=== PATIENT | male | born 1970 | race Caucasian/White ===

== ENCOUNTER → 2016-10-05 | Outpatient (CLI) | payer OTHER ==
[~2016-10-05] MED LIST: ASPI325T60 PO; ATOR-24 PO; CLOP1TAB5 PO; LISI-729 PO; LPR25 PO
[2016-10-05 13:08] LABS: CHOLESTEROL/HDL RATIO 3.4
== END | disposition home or self-care (01) ==
LOC: C.LABBFT 08:21
PROVIDERS: ATTEND Internal Medicine Cardiovascular Disease
DX: E78.5 Hyperlipidemia, unspecified (principal)

== ENCOUNTER → 2017-04-20 | Outpatient (CLI) | payer OTHER ==
[2017-04-20 13:20] LABS: CHOLESTEROL/HDL RATIO 3.5
== END | disposition home or self-care (01) ==
LOC: C.LABBFT 07:32
PROVIDERS: ATTEND Internal Medicine Cardiovascular Disease
DX: E78.5 Hyperlipidemia, unspecified (principal)

== ENCOUNTER → 2017-10-01 | Outpatient (CLI) | payer OTHER ==
[2017-10-01 12:20] LABS: BASO % 0.6 %; BASO ABS # 0.04 K/uL (0-0.2); EOS % 8.2 %; EOS ABS # 0.55 K/uL (0-0.5); HEMATOCRIT 42.4 % (42-52); HEMOGLOBIN 14.5 g/dL (14.0-18.0); IG# 0.04 K/uL (0.00-0.02); LYMPH % 25.5 %; LYMPH ABS # 1.71 K/uL (1.2-3.4); MEAN CELL VOLUME 88.5 fL (80-100); MEAN CORPUSCULAR HEMOGLOBIN 30.3 pg (25-34); MEAN CORPUSCULAR HGB CONC 34.2 g/dl (32-36); MEAN PLATELET VOLUME 10.3 fL (7.4-10.4); MONO % 8.5 %; MONO ABS # 0.57 K/uL (0.11-0.59); NEUT % 56.6 %; NEUT ABS # 3.79 K/uL (1.4-6.5); PLATELET COUNT 203 K/uL (130-400); RED CELL DISTRIBUTION WIDTH CV 12.9 % (11.5-14.5); RED CELL DISTRIBUTION WIDTH SD 41.2 fL (36.4-46.3)
[2017-10-01 12:38] LABS: ALBUMIN 4.1 gm/dl (3.4-5.0); ALKALINE PHOSPHATASE 53 U/L (45-117); ALT/SGPT 73 U/L (12-78); AST/SGOT 24 U/L (15-37); BLOOD UREA NITROGEN 21 mg/dl (7-18); CARBON DIOXIDE 28 mmol/L (21-32); CHOLESTEROL 149 mg/dl (0-200); CREATININE 1.17 mg/dl (0.60-1.40); GLUCOSE 110 mg/dl (70-99); POTASSIUM 4.4 mmol/L (3.5-5.1); SODIUM 140 mmol/L (136-145)
[2017-10-01 12:48] LABS: LDL CHOLESTEROL CALCULATED 65 mg/dl; TOTAL PROTEIN 7.4 gm/dl (6.4-8.2)
== END | disposition home or self-care (01) ==
LOC: C.LABBFT 08:04
PROVIDERS: ATTEND Internal Medicine
DX: I10 Essential (primary) hypertension (principal); E78.5 Hyperlipidemia, unspecified; R06.02 Shortness of breath; R39.9 Unspecified symptoms and signs involving the genitourinary system

== ENCOUNTER → 2017-10-12 | Outpatient (CLI) | payer OTHER ==
[2017-10-12 12:46] LABS: HEMOGLOBIN A1C 5.4 % (4.5-5.6)
== END | disposition home or self-care (01) ==
LOC: C.LABBFT 08:12
PROVIDERS: ATTEND Internal Medicine
DX: I25.10 Atherosclerotic heart disease of native coronary artery without angina pectoris (principal)

== ENCOUNTER → 2017-10-13 | Outpatient (CLI) | payer OTHER ==
--- NOTE | 2017-10-13 13:31 | EXERCISE STRESS ECHO ---
*NOTICE TO RECEIVING CONSTITUTION PARTY AGENCY This information is strictly Confidential and protected under [place] law. [place] law prohibits you from making any further disclosure of this information unless further disclosure is expressly permitted by the written consent of the person to whom it pertains or is authorized by law. A general authorization for the release of medical or other information is not sufficient for this purpose. Hospital accepts no responsibility if the information is made available to any other person, INCLUDING THE PATIENT. Interpretation Summary * Name: JOHN HENDRIX Study Date: 10/13/2017 09:41 AM BP: 138/93 mmHg * Patient Location: [facility] HR: 74 * : 1970 (M/d/yyyy) Gender: Male Height: 72 in * Age: 46 yrs Ethnicity: CA Weight: 230 lb * Ordering Physician: Franco Joyce * Referring Physician: Franco Joyce * Performed By: Cecile Ku RCS * * Reason For Study: SOB ON EXERTION * BSA: 2.3 m2 * -- Conclusions -- * 1. Normal stress echocardiogram at 11.5 METS and a peak heart rate of 100% predicted maximum. * 2. No exercise-induced chest pain. * 3. No EKG changes. * 4. Baseline echocardiogram notes normal left ventricular systolic function and no significant valvular pathology. Procedure Details * ECHOEX, CPT #[id number] * ECHO COLOR FLOW, CPT #[id number] * ECHO DOPPLER, CPT #[id number] Left Ventricle * The left ventricle is normal in size. * There is normal left ventricular wall thickness. * Left ventricular systolic function is normal. * Resting wall motion: Normal. Stress wall motion: Appropriate increase in Left ventricular systolic function and decrease in cavity size. No stress induced segmental wall motion abnormalities. Right Ventricle * The right ventricle is normal in size and function. Atria * The left atrium is mildly dilated. * Right atrial size is normal. * No ASD detected; PFO is not assessed. Mitral Valve * The mitral valve anatomy is normal. * There is no mitral valve stenosis. * Significant mitral regurgitation is absent. Tricuspid Valve * The tricuspid valve anatomy is normal. * There is no tricuspid stenosis. * There is trace tricuspid regurgitation. Aortic Valve * The aortic valve is normal in structure and function. * Aortic stenosis is absent. * No aortic regurgitation is present. Pulmonic Valve * The pulmonary valve is not well seen, but the Doppler examination is normal without significant regurgitation or stenosis. Great Vessels * The aortic root is normal size. * The pulmonary is not well visualized. Pericardium * There is no pericardial effusion. Stress Parameters * Normal baseline electrocardiogram. * Stress ECG: No ST changes. No arrhythmias. * The stress portion of this study was personally supervised by the undersigned interpreting physician. * Rest heart rate was '72' BPM. * Rest blood pressure was '138/93' * Maximum heart rate achieved was 176 bpm. * Maximum heart rate was 100 % of maximum age-predicted heart rate. * Maximum blood pressure was '165/105' * Total exercise time was '09:54' * Maximum exercise MET level achieved was '11.50' METS * Maximum treadmill speed was '4.20' miles per hour. * Maximum treadmill elevation was '16.00'% grade. MMode 2D Measurements and Calculations IVSd 1.3 cm IVSs 1.5 cm LVIDd 3.8 cm LVIDs 2.1 cm LVPWd 1.3 cm IVS/LVPW 1.0 FS 46.0 % EDV(Teich) 62.8 ml ESV(Teich) 13.8 ml EF(Teich) 78.1 % EDV(cubed) 55.8 ml ESV(cubed) 8.8 ml EF(cubed) 84.3 % % IVS thick 17.6 % LV mass(C)d 177.2 grams LV mass(C)dI 78.4 grams/m\S\2 SV(Teich) 49.0 ml SI(Teich) 21.7 ml/m\S\2 SV(cubed) 47.0 ml SI(cubed) 20.8 ml/m\S\2 Ao root diam 3.5 cm Ao root area 9.5 cm\S\2 LA dimension 3.6 cm LA/Ao 1.0 LVOT diam 2.0 cm LVOT area 3.3 cm\S\2 LVAd ap4 41.3 cm\S\2 LVLd ap4 9.1 cm EDV(MOD-sp4) 152.3 ml EDV(sp4-el) 159.8 ml LVAs ap4 25.5 cm\S\2 LVLs ap4 7.9 cm ESV(MOD-sp4) 68.0 ml ESV(sp4-el) 69.9 ml EF(MOD-sp4) 55.3 % EF(sp4-el) 56.3 % LVAd ap2 40.4 cm\S\2 LVLd ap2 10.1 cm EDV(MOD-sp2) 129.5 ml EDV(sp2-el) 137.2 ml LVAs ap2 24.1 cm\S\2 LVLs ap2 8.3 cm ESV(MOD-sp2) 59.1 ml ESV(sp2-el) 59.0 ml EF(MOD-sp2) 54.4 % EF(sp2-el) 57.0 % LVLd %diff 10.3 % EDV(MOD-bp) 148.3 ml LVLs %diff 5.0 % ESV(MOD-bp) 64.4 ml EF(MOD-bp) 56.5 % SV(MOD-sp4) 84.3 ml SI(MOD-sp4) 37.3 ml/m\S\2 SV(MOD-sp2) 70.5 ml SI(MOD-sp2) 31.2 ml/m\S\2 SV(MOD-bp) 83.8 ml SI(MOD-bp) 37.1 ml/m\S\2 SV(sp4-el) 89.9 ml SI(sp4-el) 39.7 ml/m\S\2 SV(sp2-el) 78.2 ml SI(sp2-el) 34.6 ml/m\S\2 Doppler Measurements and Calculations MV E max lachelle 60.4 cm/sec MV A max lachelle 40.4 cm/sec MV E/A 1.5 MV P1/2t max lachelle 66.4 cm/sec MV P1/2t 83.2 msec MVA(P1/2t) 2.6 cm\S\2 MV dec slope 233.7 cm/sec\S\2 MV dec time 0.27 sec Ao V2 max 88.0 cm/sec Ao max PG 3.1 mmHg Ao max PG (full) 1.1 mmHg IGNACIO(V,A) 2.6 cm\S\2 IGNACIO(V,D) 2.6 cm\S\2 LV V1 max PG 2.0 mmHg LV V1 max 70.0 cm/sec PA V2 max 96.6 cm/sec PA max PG 3.7 mmHg PI max lachelle 158.8 cm/sec PI max PG 10.1 mmHg PI dec slope 151.2 cm/sec\S\2 PI P1/2t 307.4 msec
== END | disposition home or self-care (01) ==
LOC: C.CPL 09:26
PROVIDERS: ATTEND Internal Medicine
DX: R06.02 Shortness of breath (principal)

== ENCOUNTER → 2017-10-19 | Outpatient (CLI) | payer OTHER ==
[2017-10-19 12:45] LABS: ALT/SGPT 52 U/L (12-78); AST/SGOT 22 U/L (15-37)
== END | disposition home or self-care (01) ==
LOC: C.LABBFT 07:58
PROVIDERS: ATTEND Internal Medicine Cardiovascular Disease
DX: E78.5 Hyperlipidemia, unspecified (principal); I10 Essential (primary) hypertension

== ENCOUNTER → 2017-11-01 | Outpatient (CLI) | payer OTHER ==
--- NOTE | 2017-11-01 10:04 | DIAGNOSTIC IMAGING REPORT ---
TWO VIEW CHEST CLINICAL HISTORY: Dyspnea. FINDINGS: PA and lateral chest radiographs are compared to study dated 01/26/2013. The cardiomediastinal silhouette is unremarkable. The lungs and pleural spaces are clear. There is no pneumothorax. The bony thorax appears intact. IMPRESSION: No active disease in the chest. Electronically signed by: Wilian Vaughn M.D. 11/01/2017 10:03 AM Dictated Date/Time: 11/01/2017 10:00 AM
== END | disposition home or self-care (01) ==
LOC: C.RAD1850 09:36
PROVIDERS: ATTEND Internal Medicine
DX: R06.02 Shortness of breath (principal)